=== PATIENT | female | born 1960 | race Caucasian/White ===

== ENCOUNTER 2024-03-15 07:26 | Inpatient (IN) | payer SELFPAY ==
[~2024-03-15] VITALS: Ht 167.6 cm; Wt 57.2 kg
[2024-03-15] MEDS: HYDROcodone-ACET 5/325MG TAB PO ONE (09:23)
[2024-03-15 12:23] LABS: Chloride 109 mmol/L (98-107); Potassium 3.1 mmol/L (3.5-5.1); Sodium 140 mmol/L (136-145)
[2024-03-15 12:24] LABS: Anion Gap 9 (5-15); Calcium 9.3 mg/dL (8.5-10.1); Carbon Dioxide 22 mmol/L (20-30)
[2024-03-15 12:29] LABS: BUN/Creatinine Ratio 22.9 (10.0-20.0); Basophils # (auto) 0.1 10 ^3/uL (0-0.2); Basophils % (auto) 0.8 % (0.0-2.0); Blood Urea Nitrogen 16 mg/dL (9-23); Eosinophils # (auto) 0.1 10 ^3/uL (0-0.8); Eosinophils % (auto) 1.2 % (0.0-7.0); Glucose 100 mg/dL (74-106); Hematocrit 37.1 % (36.0-46.0); Hemoglobin 12.7 g/dL (12.2-16.2); Lymphocytes # (auto) 1.7 10 ^3/uL (0.4-5.4); Lymphocytes % (auto) 17.9 % (10.0-50.0); Mean Corpuscular Hemoglobin 32.8 pg (28.0-32.0); Mean Corpuscular Hgb Conc. 34.1 g/dL (32.0-36.0); Monocytes # (auto) 0.6 10 ^3/uL (0-1.3); Monocytes % (auto) 6.8 % (0.0-12.0); Neutrophils # (auto) 6.8 10 ^3/uL (1.6-8.6); Neutrophils % (auto) 73.3 % (37.0-80.0); Nucleated Red Blood Cells % 0.1 %; Red Blood Cells 3.87 10^6/uL (4.0-5.20); Red Cell Distribution Width 12.9 % (11.8-14.3); White Blood Cell 9.3 10^3/uL (4.4-10.8)
[2024-03-15] MEDS ORDERED: ACETAMINOPHEN 325 MG TAB PO PRN (13:45)
[2024-03-15] MEDS: SODIUM CHLORIDE 0.9% 1,000 ML IV ONE ×2 (14:28→14:29)
[2024-03-15] MEDS: MORPHINE SULFATE 4 MG/ML SYR/VIAL IV ONE (14:29)
[2024-03-15] MEDS: ONDANSETRON HCL 4 MG/2 ML VIAL IV ONE (14:29)
[2024-03-15] MEDS: POTASSIUM EFFERVESENT TAB 25 MEQ PO ONE (14:30)
[2024-03-15 23:00] VITALS: BP 121/72; PULSE 64; RESP 18; TEMP 98.5; O2SAT 99
[2024-03-15 23:05] VITALS: BP 121/72; PULSE 64; RESP 18; TEMP 98.5; O2SAT 99
[2024-03-15] MEDS: SODIUM CHLORIDE 0.9% 1,000 ML IV SCH (23:05)
[2024-03-15] MEDS: HYDROcodone-ACET 5/325MG TAB PO PRN (23:39)
[2024-03-16 05:00] VITALS: BP 128/73; PULSE 64; RESP 18; TEMP 98.4; O2SAT 97
[2024-03-16 08:09] LABS: Alanine Aminotransferase 22 U/L (7-40); Alkaline Phosphatase 112 U/L (46-116); Anion Gap 9 (5-15); BUN/Creatinine Ratio 14.9 (10.0-20.0); Blood Urea Nitrogen 10 mg/dL (9-23); Calcium 8.7 mg/dL (8.5-10.1); Carbon Dioxide 21 mmol/L (20-30); Chloride 111 mmol/L (98-107); Glucose 90 mg/dL (74-106); LDL Cholesterol 130 mg/dL (< 100); Potassium 3.2 mmol/L (3.5-5.1); Sodium 141 mmol/L (136-145); Triglycerides 130 mg/dL (< 150)
[2024-03-16 08:10] LABS: Albumin 3.8 g/dL (3.2-4.8); Aspartate Aminotransferase 20 U/L (13-40); Cholesterol 218 mg/dL (< 200); HDL Cholesterol 67 mg/dL (40-59); Phosphorus 3.7 mg/dL (2.4-5.1)
[2024-03-16 08:11] LABS: Bilirubin, Total 0.6 mg/dL (0.2-1.0); Total Protein 6.7 g/dL (5.7-8.2)
[2024-03-16 08:20] LABS: Basophils # (auto) 0.1 10 ^3/uL (0-0.2); Basophils % (auto) 1.1 % (0.0-2.0); Eosinophils # (auto) 0.4 10 ^3/uL (0-0.8); Eosinophils % (auto) 5.2 % (0.0-7.0); Hematocrit 40.2 % (36.0-46.0); Hemoglobin 13.1 g/dL (12.2-16.2); Lymphocytes # (auto) 2.1 10 ^3/uL (0.4-5.4); Lymphocytes % (auto) 29.2 % (10.0-50.0); Mean Corpuscular Hemoglobin 32.2 pg (28.0-32.0); Mean Corpuscular Hgb Conc. 32.6 g/dL (32.0-36.0); Mean Corpuscular Volume 98.7 fL (80.0-100.0); Monocytes # (auto) 0.6 10 ^3/uL (0-1.3); Monocytes % (auto) 7.7 % (0.0-12.0); Neutrophils # (auto) 4.2 10 ^3/uL (1.6-8.6); Neutrophils % (auto) 56.8 % (37.0-80.0); Nucleated Red Blood Cells % 0.2 %; Red Blood Cells 4.07 10^6/uL (4.0-5.20); Red Cell Distribution Width 13.4 % (11.8-14.3); White Blood Cell 7.3 10^3/uL (4.4-10.8)
[2024-03-16 09:00] VITALS: BP 147/91; PULSE 69; RESP 16; TEMP 98.1; O2SAT 97
[2024-03-16 09:06] LABS: Magnesium 1.8 mg/dL (1.6-2.6)
[2024-03-16] MEDS: KETOROLAC TROMETH 30 MG/ML 1ML VIAL IV PRN (10:38)
[2024-03-16] MEDS: POTASSIUM EFFERVESENT TAB 25 MEQ PO ONE (10:39)
[2024-03-16] MEDS: ENOXAPARIN SOD 40 MG/0.4 ML SYRINGE SC SCH (10:39)
[2024-03-16 10:42] LABS: INR 1.01 (0.9-1.15); Partial Thromboplastin Time 27.1 SEC (24.5-34.5); Prothrombin Time 10.6 sec (9.3-11.8)
[2024-03-16 13:00] VITALS: BP 125/78; PULSE 66; RESP 16; TEMP 98.2; O2SAT 96
[2024-03-16] MEDS ORDERED: ATORVASTATIN 20 MG TAB PO SCH (22:00)
== END 2024-03-16 15:24 | disposition left against medical advice (07) | DRG 605 ==
LOC: EDBD 07:26 → ER 07:26 → EAST 13:34 → OVERFLOW 13:34 → EAST 22:57
PROVIDERS: ADMIT Internal Medicine; ATTEND Internal Medicine
DX: S70.02XA Contusion of left hip, initial encounter (principal); E87.6 Hypokalemia; W01.0XXA Fall on same level from slipping, tripping and stumbling without subsequent striking against object, initial encounter; Z53.29 Procedure and treatment not carried out because of patient's decision for other reasons; E78.5 Hyperlipidemia, unspecified; Z88.2 Allergy status to sulfonamides; Y93.89 Activity, other specified; Y92.89 Other specified places as the place of occurrence of the external cause; Y99.8 Other external cause status
CPT/HCPCS: 36415; 72170; 80048; 80053; 80061; 82306; 82607; 83036; 83605; 83735; 84100; 84443; 85025; 85610; 85730; 97163; G0378; J1885

== ENCOUNTER 2025-08-05 16:13 | Emergency (ER) | payer OTHER ==
[~2025-08-05] VITALS: Ht 167.6 cm; Wt 59.0 kg
[2025-08-05] MEDS ORDERED: LIDOCAINE 1% HCL (LOCAL ANESTH.) INJ 20ML MDV ONE (17:05)
--- NOTE | 2025-08-05 17:30 | ED.PDOC ---
Ashley. trauma (HPI) HPI Comments A 64 YEAR OLD FEMALE PRESENTS TO THE ED WITH COMPLAINT OF HEAD INJURY. PATIENT SAYS EARLIER THIS AFTERNOON SHE WALKED INTO HER HOUSE AND STATES SHE WAS GREETED BY HER DOG. PATIENT STATES SHE TRIPPED AND FELL OVER HER DOG ONTO HER KNEES CAUSING HER TO FALL FORWARD, HITTING HER HEAD ONTO A WOODEN BAR STOOL. PATIENT STATES SHE DID NOT LOSE CONSCIOUSNESS BUT NOTED BLEEDING AFTER HITTING HER FOREHEAD. PATIENT NOTES SINCE SHE HAS BEEN HAVING ASSOCIATED DIZZINESS AND H EADACHE. PATIENT DENIES FEVER, CHILLS, SHORTNESS OF BREATH, CHEST PAIN, ABDOMINAL PAIN, NAUSEA, VOMITING, OR OTHER COMPLAINTS. NO OTHER SYMPTOMS OR MODIFYING FACTORS AT THIS TIME. PATIENT IS ALERT, ORIENTED X 4, AND HAS STEADY GAIT. Chief Complaint: Head Injury Time Seen by MD: 17:24 Primary Care Provider: NONE Reviewed notes: Nurses Notes, Medications, Allergies Allergies: Coded Allergies: Sulfa Antibiotics (Verified Allergy, Severe, RASH, 03/18/16) Home Meds Active Scripts Cephalexin Monohydrate (Cephalexin) 500 Mg Cap, 1 CAP PO TID, #21 CAP Prov:ROCK SPAIN 08/05/25 Acetaminophen (Tylenol 8 Hour Arthritis) 650 Mg Tab, 650 MG PO TID, #30 TAB Prov:ROCK SPAIN 08/05/25 Information Source: Patient Mode of Arrival: Ambulatory Severity: Moderate Timing: Hours Duration: Since onset Prehospital treatment: None Location: Head Location of laceration: Head Mechanism: Fall Associated signs and symtoms: Headache Past Medical History PAST MEDICAL HISTORY: CVA Surgical History: Denies all surgeries VOCATIONAL COORDINATOR History: No Pertinent VOCATIONAL COORDINATOR History Family History Family History: Unobtainable Social History Smoker: Non-Smoker Alcohol: Occasionally Drugs: Denies Drug Use Lives In: Home Constitutional: denies: chills, diaphoresis, fatigue, fever, malaise, sweats, weakness, others EENTM: denies: blurred vision, double vision, ear bleeding, ear discharge, ear drainage, ear pain, ear ringing, eye pain, eye redness, hearing loss, mouth pain, mouth swelling, nasal discharge, nose bleeding, nose congestion, nose pain, photophobia, tearing, throat pain, throat swelling, voice changes, others Respiratory: denies: cough, hemoptysis, orthopnea, SOB at rest, shortness of breath, SOB with excertion, stridor, wheezing, others Cardiovascular: denies: chest pain, dizzy spells, diaphoresis, Dyspnea on exertion, edema, irregular heart beat, left arm pain, lightheadedness, palpitations, PND, syncope, others Gastrointestinal: denies: abdomen distended, abdominal pain, blood streaked bowels, constipated, diarrhea, dysphagia, difficulty swallowing, hematemesis, melena, nausea, poor appetite, poor fluid intake, rectal bleeding, rectal pain, vomiting, others Genitourinary: denies: abnormal vagina bleeding, burning, dyspareunia, dysuria, flank pain, frequency, hematuria, incontinence, pain, , vagina discharge, urgency, others Neurological: reports: dizziness, headache; denies: fainting, left sided numbness, left sided weakness, numbness, paresthesia, pre-existing deficit, right sided numbness, right sided weakness, seizure, speech problems, tingling, tremors, weakness, others Musculoskeletal: denies: back pain, gout, joint pain, joint swelling, muscle pain, muscle stiffness, neck pain, others Integumetry: reports: laceration (FOREHEAD); denies: bruises, change in color, change in hair/nails, dryness, lesions, lumps, rash, wounds, others Allergic/Immunocompromised: denies: Difficulty Healing, Frequent Infections, Hives, Itching, others Hematologic/Lymphatic: denies: anemia, blood clots, easy bleeding, easy bruising, swollen glands, others Endocrine: denies: excessive hunger, excessive sweating, excessive thirst, excessive urination, flushing, intolerance to cold, intolerance to heat, unexplained weight gain, unexplained weight loss, others Psychiatric: denies: anxiety, bipolar disorder, depression, hopeless, panic disorder, schizophrenia, sleepless, suicidal, others All Other Systems: Reviewed and Negative Physical Exam General Appearance: No Apparent Distress, Normal HEENT: Head (LACERATION ON THE MIDDLE FOREHEAD, NO BONY TENDERNESS, SWELLING AND DEFORMITY. ), Normal ENT Inspection, PERRL/EOMI, Pharynx Normal, TMs Normal Neck: Full Range of Motion, Non-Tender, Normal, Normal Inspection Respiratory: Chest Non-Tender, Lungs Clear, No Accessory Muscle Use, No Respiratory Distress, Normal Breath Sounds Cardiovascular: No Edema, No JVD, No Murmur, No Gallop, Normal Peripheral Pulses, Regular Rate/Rhythm Breast Exam: Deferred Gastrointestinal: No Organomegaly, Non Tender, No Pulsatile Mass, Normal Bowel Sounds, Soft Genitalia: Deferred Pelvic: Deferred Rectal: Deferred Extremities: No calf tenderness, Normal capillary refill, Normal inspection, Normal range of motion, Non-tender, No pedal edema Musculoskeletal : Apperance: Normal Neurologic: Alert, filament cutter II-XII nml as Tested, No Motor Deficits, Normal Affect, Normal Mood, No Sensory Deficits Cerebellar Function: Normal Reflexes: Normal Skin: Dry, Lacerations (3CM LACERATION ON THE MIDDLE FOREHEAD, NO BLEEDING AND FB. ), Normal Color, Warm Peripheral Pulses: 2+ carotid (R), 2+ carotid (L) Lymphatic: No Adenopathy Was a procedure done? Was a procedure done?: Yes Sedation Sedation?: No Informed consent obtained: No Laceration Repair : Location MIDDLE FOREHEAD Length 3 Anesthetic: Lidocaine Laceration Repair Prep: Saline, Betadine, by Irrigation Laceration Repair Wound Comple: epidermis/dermis repair Laceration Repair: Number of sutures (5 SUTURES), SQ (4-0), Size (4-0), Vicryl (4.0 ETHILON), Simple, Gauze Informed consent obtained: No Risks, benefits, and alternati: Yes Images 1 - Differential Diagnosis Multiple Trauma: Closed Head Injury, Abrasions, Contusion, Hematoma, Laceration, Encephalopathy X-Ray, Labs, Meds, VS Vital Signs Date Time Temp Pulse Resp B/P (MAP) Pulse Ox O2 Delivery O2 Flow Rate FiO2 08/05/25 17:48 66 16 100 Room Air* 0 21 08/05/25 17:48 97.8 66 16 149/83 (105) 100 97.8 08/05/25 16:23 98.4 82 18 119/[address] [address] Ph: [phone] DIAGNOSTIC IMAGING Diagnostic Imaging Report : [id number] Signed PATIENT: ANAMARIA OLIVARES ACCT: [id number] UNIT: [id number] : 1960 LOC: ER ROOM / BED: / AGE / SEX: 64 / F ADM STATUS: REG ER SERVICE 1641 ORDERING PHYSICIAN: ROCK SPAIN PROCEDURE(s): HWOCT - HEAD WITHOUT CONTRAST REASON: LACERATION POST FALL ORDER NUMBER(s): [id number], ACCESSION NUMBER(s): [id number] EXAM: CT HEAD WITHOUT CONTRAST INDICATION: LACERATION POST FALL TECHNIQUE: CT images of the head were obtained without administration of IV contrast. CT scans at this facility use dose modulation, iterative reconstruction, and/or weight based dosing when appropriate to reduce radiation dose to as low as reasonably achievable. COMPARISON: None FINDINGS: PARENCHYMA: No acute hemorrhage. There is no mass effect, midline shift, or herniation. There is preservation of the gay white differentiation. Mild scattered hypoattenuation along the periventricular, centrum semiovale, and deep white matter tracts, which are nonspecific however statistically most likely represent chronic microvascular ischemic change. small area hypoattenuation which may be related to prior infarct along the right anterior deysi, age- indeterminate VENTRICLES: No hydrocephalus. EXTRA-AXIAL SPACES: No extra-axial fluid collections. OTHER: The bony structures are intact. Near-complete opacification with increased density of the right maxillary sinus. Mild mucosal thickening along the paranasal sinuses. Left forehead soft tissue swelling. IMPRESSION: 1. No CT evidence of an acute intracranial hemorrhage. 2. Left forehead soft tissue swelling. 3. Small area of hypoattenuation along the right anterior deysi, age- indeterminate. ATED BY: MARYLIN MOORE MD DICTATED DATE/TIME: 08/05/251758 SIGNED BY: MARYLIN MOORE MD SIGNED DATE/TIME: 08/05/251758 CC: X-Ray, Labs, Meds, VS Comment EXTERNAL MEDICAL RECORDS REVIEWED: [NONE] INDEPENDENT HISTORIANS: [NONE] SOCIAL DETERMINANTS OF HEALTH: [NONE] LABS ORDERED: NONE REVIEWED AND INTERPRETED RESULTS: NONE IMAGING ORDERED: CT HEAD WITHOUT CONTRAST TREATMENTS ORDERED: TYLENOL 1GM PO AND TD 0.5MG IM PROCEDURES PERFORMED: NONE CRITICAL CARE TIME: NONE I HAVE DISCUSSED THE PATIENT WITH THE ATTENDING PHYSICIAN, DR. FAY, HE AGREES WITH THE PATIENT'S PLAN OF CARE AND DISPOSITION. BASED ON HISTORY OF PRESENT ILLNESS, AND PHYSICAL EXAM, PATIENT WILL BE DISCHARGED HOME. DISCUSSED PLAN FOR DISCHARGE HOME WITH RX [TYLENOL AND KEFLEX]. MEDICATION WARNINGS GIVEN. SHARED DECISION MAKING: DISCUSSED WITH PATIENT THAT THEIR WORKUP WAS NORMAL. PATIENT INSTRUCTED TO FOLLOW UP WITH PRIMARY CARE PROVIDER IN 1-2 DAYS FOR RE- EVALUATION OF SYMPTOMS. PATIENT VERBALIZES UNDERSTANDING TO RETURN TO ED FOR NEW OR WORSENING SYMPTOMS OR IF FOLLOW UP WITH PCP CANNOT BE OBTAINED. PATIENT FEELS COMFORTABLE GOING HOME AT THIS TIME. ALL QUESTIONS ADDRESSED AT TIME OF DISCHARGE. Time of 1ST Reevaluation: 18:30 Reevaluation 1ST: Improved Patient Education/Counseling: Diagnosis, Treatment, Need For Follow Up Family Education/Counseling: Diagnosis, Treatment, Need For Follow Up Medical Screening: No EMC Exist At This Time Departure 1 Departure Time of Disposition: 18:30 Impression: Primary Impression: Laceration of forehead Qualified Codes: S01.81XA - Laceration without foreign body of other part of head, initial encounter Additional Impression: Status post fall Disposition: 01 HOME / SELF CARE / HOMELESS Condition: Stable Additional Instructions: FOLLOW-UP WITH PCP IN 1 TO 2 DAYS. TAKE MEDICATIONS PRESCRIBED. RETURN TO ED FOR ANY NEW OR WORSENING SYMPTOMS. e-Prescriptions Cephalexin Monohydrate (Cephalexin) 500 Mg Cap 1 CAP PO TID, #21 CAP Prov: ROCK SPAIN 08/05/25 Acetaminophen (Tylenol 8 Hour Arthritis) 650 Mg Tab 650 MG PO TID, #30 TAB Prov: ROCK SPAIN 08/05/25 Discharged With: Self Critical Care Note Critical Care Time?: No Stability Stability form required: No Heart Score Heart Score: Heart Score Response (Comments) Value History N/A 0 EKG N/A 0 Age N/A 0 Risk Factors N/A 0 Troponin N/A 0 Total 0 I personally scribed for ROCK SPAIN ([email or web address]) on 08/05/25 at 17:30. Electronically submitted by Rissa Shankar ([employer]). I personally scribed for ROCK SPAIN ([email or web address]) on 08/05/25 at 17:51. Electronically submitted by Rissa Shankar ([employer]). I personally scribed for ROCK SPAIN ([email or web address]) on 08/05/25 at 17:53. Electronically submitted by Rissa Shankar ([email or web address]). I personally scribed for ROCK SPAIN ([email or web address]) on 08/05/25 at 18:04. Electronically submitted by Rissa Shankar ([email or web address]). ROCK SPAIN Aug 05, 2025 17:30
[2025-08-05] MEDS: LIDOCAINE 1% HCL (LOCAL ANESTH.) INJ 20ML MDV IJ ONE (17:38)
[2025-08-05 17:48] VITALS: BP 149/83; PULSE 66; RESP 16; TEMP 97.8; O2SAT 100
--- NOTE | 2025-08-05 18:02 | DVH ---
EXAM: CT HEAD WITHOUT CONTRAST INDICATION: LACERATION POST FALL TECHNIQUE: CT images of the head were obtained without administration of IV contrast. CT scans at [facility] facility use dose modulation, iterative reconstruction, and/or weight based dosing when appropriate to reduce radiation dose to as low as reasonably achievable. COMPARISON: None FINDINGS: PARENCHYMA: No acute hemorrhage. There is no mass effect, midline shift, or herniation. There is pres ervation of the gay white differentiation. Mild scattered hypoattenuation along the periventricular, centrum semiovale, and deep white matter tracts, which are nonspecific however statistically most li candice represent chronic microvascular ischemic change. small area hypoattenuation which may be related to prior infarct along the right anterior deysi, age-indeterminate VENTRICLES: No hydrocephalus. EXTRA-AXIAL SPACES: No extra-axial fluid collections. OTHER: The bony structures are intact. Near-complete opacification with increased density of the rig ht maxillary sinus. Mild mucosal thickening along the paranasal sinuses. Left forehead soft tissue sw elling. IMPRESSION: 1. No CT evidence of an acute intracranial hemorrhage. 2. Left forehead soft tissue swelling. 3. Small area of hypoattenuation along the right anterior deysi, age-indeterminate.
[2025-08-05] MEDS ORDERED: ACET-1080 PO (18:08)
[2025-08-05] MEDS ORDERED: CEPH500C PO (18:08)
[2025-08-05] MEDS: ACETAMINOPHEN 500 MG TAB or CAP PO ONE (18:25)
[2025-08-05] MEDS ORDERED: ACETAMINOPHEN 500 MG TAB or CAP PO ONE (18:26)
[2025-08-05] MEDS ORDERED: TETANUS-DIPTH-ACEL PERTUSSIS 0.5ML SYR Tdap IM ONE (18:26)
[2025-08-05] MEDS: TETANUS-DIPTH-ACEL PERTUSSIS 0.5ML SYR Tdap IM ONE (18:27)
== END 2025-08-05 18:36 | disposition home or self-care (01) ==
LOC: ER 16:19
DX: S01.81XA Laceration without foreign body of other part of head, initial encounter (principal); Z86.73 Personal history of transient ischemic attack (TIA), and cerebral infarction without residual deficits; Z88.2 Allergy status to sulfonamides; W01.10XA Fall on same level from slipping, tripping and stumbling with subsequent striking against unspecified object, initial encounter; Y93.89 Activity, other specified; Y92.89 Other specified places as the place of occurrence of the external cause; Y99.8 Other external cause status
CPT/HCPCS: 12052; 70450; 90471; 90715; 99285; J2003; 12013

== ENCOUNTER 2025-08-18 19:03 | Emergency (ER) | payer OTHER ==
[~2025-08-18] VITALS: Ht 167.6 cm; Wt 59.7 kg
[~2025-08-18 19:03] MED LIST: ACET-1080 PO; CEPH500C PO
[2025-08-18 19:05] VITALS: BP 153/101; PULSE 91; RESP 16; TEMP 98.4; O2SAT 99
--- NOTE | 2025-08-18 19:50 | ED.PDOC ---
History of Present Illness(SKN HPI Comments 64-year-old female presents to the ED chief complaint suture removal. Proximally two weeks ago patient had sutures placed in top middle forehead states his healed. Denies any complications. Denies fever, chills, nausea, vomiting, redness, edema or pain. Chief Complaint: Suture Removal Time Seen by MD: 19:05 Primary Care Provider: NONE History of Present Illness: Nurses Notes, Medications, Allergies Allergies: Coded Allergies: Sulfa Antibiotics (Verified Allergy, Severe, RASH, 03/18/16) Home Meds Active Scripts Cephalexin Monohydrate (Cephalexin) 500 Mg Cap, 1 CAP PO TID, #21 CAP Prov:ROCK SPAIN 08/05/25 Acetaminophen (Tylenol 8 Hour Arthritis) 650 Mg Tab, 650 MG PO TID, #30 TAB Prov:ROCK SPAIN 08/05/25 Information Source: Patient Mode of Arrival: Ambulatory Past Medical History PAST MEDICAL HISTORY: CVA Surgical History: Denies all surgeries SET UP AND CHARGER History: No Pertinent SET UP AND CHARGER History Family History Family History: Unobtainable Social History Smoker: Non-Smoker Alcohol: Occasionally Drugs: Denies Drug Use Lives In: Home All Other Systems: Reviewed and Negative (see hpi) Physical Exam General Appearance: No Apparent Distress, Normal HEENT: Pharynx Normal Neck: Full Range of Motion, Non-Tender Respiratory: Lungs Clear, No Respiratory Distress, Normal Breath Sounds Cardiovascular: No Murmur, Normal Peripheral Pulses, Regular Rate/Rhythm Breast Exam: Deferred Gastrointestinal: Non Tender, Soft Genitalia: Deferred Pelvic: Deferred Rectal: Deferred Extremities: No calf tenderness, Normal capillary refill, Normal range of motion Musculoskeletal : Apperance: Normal Neurologic: Alert, No Motor Deficits, Normal Affect, Normal Mood, No Sensory Deficits Cerebellar Function: Normal Reflexes: NOT DONE Skin: Dry, Normal Color, Warm, Wounds (Five sutures in place middle forehead no noted drainage, bleeding, or redness.) Lymphatic: No Adenopathy Was a procedure done? Was a procedure done?: Yes Sedation Sedation?: No Informed consent obtained: Yes Other Procedure Procedure Suture removal forehead Indication Two weeks sutures Anesthetic None Prep None Success Five sutures removed patient tolerated well good approximation no noted bleeding or pain. Informed consent obtained: Yes Risks, benefits, and alternati: Yes Differential Diagnosis (INTG) Differential Diagnosis: Cellulitis Differential Diagnosis: Abscess X-Ray, Labs, Meds, VS Vital Signs Date Time Temp Pulse Resp B/P (MAP) Pulse Ox O2 Delivery O2 Flow Rate FiO2 08/18/25 19:05 98.4 91 16 153/101 99 98.4 X-Ray, Labs, Meds, VS Comment See procedure note Time of 1ST Reevaluation: 19:05 Reevaluation 1ST: Unchanged Time of 2ND Reevaluation: 19:50 Reevaluation 2ND: Improved Patient Education/Counseling: Diagnosis, Treatment, Need For Follow Up Family Education/Counseling: No Family Present SEPSIS Sepsis Screen Date sepsis recognized/suspect: Aug 18, 2025 Time Sepsis recognized/suspect: 1904 Recent Procedure: No On Antibiotic Therapy: No Respiratory Rate >20: No Heart Rate >90: Yes Temp<36 C (96.8 F) or >38.3 C: No SBP <90 or MAP <65 mmHG: No New Acute Mental Status Change: No Is the patient on CPAP, BIPAP,: No Vital Signs Date Time Temp Pulse Resp B/P (MAP) Pulse Ox O2 Delivery O2 Flow Rate FiO2 08/18/25 19:05 98.4 91 16 153/101 99 98.4 Departure 1 Departure Time of Disposition: 19:49 Impression: Primary Impression: Encounter for removal of sutures Disposition: 01 HOME / SELF CARE / HOMELESS Condition: Stable Discharged With: Self Critical Care Note Critical Care Time?: No Stability Stability form required: ULISES Zimmerman Aug 18, 2025 19:50
== END 2025-08-18 20:01 | disposition home or self-care (01) ==
LOC: ER 19:06
DX: S01.81XD Laceration without foreign body of other part of head, subsequent encounter (principal); F10.90 Alcohol use, unspecified, uncomplicated; Z79.899 Other long term (current) drug therapy; Z88.2 Allergy status to sulfonamides; Z86.73 Personal history of transient ischemic attack (TIA), and cerebral infarction without residual deficits; Z48.02 Encounter for removal of sutures; X58.XXXD Exposure to other specified factors, subsequent encounter; Y90.9 Presence of alcohol in blood, level not specified